=== PATIENT | male | born 1950 | race African-American/Black ===

== ENCOUNTER 2017-06-14 14:36 | Emergency (ER) | payer MEDICARE ==
[2017-06-14 15:29] VITALS: BMI 30.4
--- NOTE | 2017-06-14 16:42 | PDOC ---
History of Present Illness - General Chief Complaint: Injury Stated Complaint: FALL Time Seen by Provider: 06/14/17 16:36 History Source: Patient Exam Limitations: No Limitations - History of Present Illness Initial Comments: CHIEF COMPLAINT: 66 y/o afebrile male with PMH HTN, HLD c/o left shoulder pain s/p fall. HISTORY OF PRESENT ILLNESS: The patient states he walked into his apartment this afternoon carrying a lot of bags when he slipped on the floor and landed on his left side. He states he realized after he fell that his ceiling was leaking and the floor was wet. He now has left shoulder pain. He denies head trauma, LOC, neck pain, n/v/d, dizziness, CP, SOB, left arm numbness/tingling. He did not take any pain medication at home prior to coming to the ER. Vital signs on arrival are within normal limits. REVIEW OF SYSTEMS: GENERAL/CONSTITUTIONAL: No fever/chills. No weakness. No weight change. HEAD, EYES, EARS, NOSE AND THROAT: No change in vision. No ear pain or discharge. No sore throat. MUSCULOSKELETAL: +left shoulder pain. No neck or back pain. SKIN: No rash or easy bruising. NEUROLOGIC: No headache, vertigo, loss of consciousness, or loss of sensation. PHYSICAL EXAM: VITAL_SIGNS: within normal limits GENERAL_APPEARANCE: alert, cooperative, no obvious discomfort. MENTAL_STATUS: speech clear, oriented X 3, responds appropriately to questions. NEURO: motor intact and sensory intact in injured extremity. EXTREMITIES: Pt cannot abduct left arm > 90 degrees and he cannot put his left arm behind his back. Pain with palpation of left AC joint. No tenting or deformities to left clavicle. No obvious deformities to left shoulder. SKIN: warm, dry, good color. Past History - Past Medical History Allergies/Adverse Reactions: Allergies Allergy/AdvReac Type Severity Reaction Status Date / Time No Known Allergies Allergy Verified 11/08/14 02:18 Home Medications: Ambulatory Orders Fenofibric Acid [Trilipix -] 135 mg PO DAILY #30 cap 11/12/14 Irbesartan 300 mg PO DAILY #0 tablet 11/12/14 Tramadol HCl 50 mg PO Q6H #15 tablet MDD 6 06/14/17 Anemia: No Asthma: No Cancer: No Cardiac Disorders: No CVA: No COPD: No CHF: No Dementia: No Diabetes: No GI Disorders: No Disorders: No HTN: Yes Hypercholesterolemia: Yes Liver Disease: No Seizures: No Thyroid Disease: No - Surgical History Abdominal Surgery: No Appendectomy: No Cardiac Surgery: No Cholecystectomy: No Lung Surgery: No Neurologic Surgery: No Orthopedic Surgery: Yes (bilateral knee sx) - Immunization History Immunization Up to Date: Yes - Psycho/Social/Smoking Cessation Hx Anxiety: No Suicidal Ideation: No Smoking History: Never smoked Have you smoked in the past 12 months: No Number of Cigarettes Smoked Daily: 3 Information on smoking cessation initiated: No 'Breaking Loose' booklet given: 11/09/14 Hx Alcohol Use: No Drug/Substance Use Hx: No Substance Use Type: None Hx Substance Use Treatment: No *Physical Exam - Vital Signs Last Vital Signs Temp Pulse Resp BP Pulse Ox 97.6 F 81 18 117/75 97 06/14/17 15:00 06/14/17 15:00 06/14/17 15:00 06/14/17 15:00 06/14/17 15:00 Medical Decision Making - Medical Decision Making A/P: 66 y/o afebrile male with left shoulder pain s/p slip and fall at home. Plan is as follows: 1. Left shoulder/clavicle xray 2. PO motrin Left shoulder/clavicle xray IMPRESSION: No acute fracture or dislocation The patient was given his results. Suspect rotator cuff injury. Suggested RICE instructions and provided referral for Ortho. He states he already sees Dr. Roche. Suggested he call Dr. Roche tomorrow to schedule follow up appointment. Will send rx for tramadol, and suggested he take 600mg of Ibuprofen every 6 hours with food for pain in addition to the tramadol if needed. Instructed him to return to the ER with any worsening or concerning symptoms. The patient verbalizes understanding of all instructions, has no further questions and is awaiting discharge. *DC/Admit/Observation/Transfer Diagnosis at time of Disposition: Shoulder pain, left Qualifiers: Chronicity: acute Qualified Code(s): M25.512 - Pain in left shoulder Rotator cuff (capsule) sprain Qualifiers: Encounter type: initial encounter Laterality: left Qualified Code(s): S43.422A - Sprain of left rotator cuff capsule, initial encounter - Discharge Dispostion Disposition: HOME Condition at time of disposition: Unchanged/Unknown - Prescriptions Prescriptions: Tramadol HCl 50 mg PO Q6H #15 tablet MDD 6 - Referrals Referrals: Onelia Zuniga MD [Primary Care Provider] - Raúl Roche MD [Staff Physician] - 1 week - Patient Instructions Printed Discharge Instructions: How To Perform RICE (Rest, Ice, Compress, Elevate), DI for Shoulder Pain, DI for Rotator Cuff Injury Additional Instructions: Discharge Instructions: -The xrays of your shoulder were negative for broken bones. -Please follow RICE instructions at home -A prescription for Tramadol was sent to your pharmacy for pain -Take 600mg of over the counter Ibuprofen every 6 hours with food for pain if needed as extra pain relief. -If no improvement in your shoulder pain within 1 week, please call Dr. Roche to schedule follow up appointment -Return to the ER with any worsening or concerning symptoms.
[2017-06-14] MEDS ORDERED: IBUPROFEN 600 MG TABLET (FP) PO ONE ×2 (16:52→16:57)
[2017-06-14 19:19] VITALS: BP 134/69; PULSE 69; TEMP 98.1
== END 2017-06-14 18:50 | disposition home or self-care (01) ==
LOC: JER 14:36
DX: S43.422A Sprain of left rotator cuff capsule, initial encounter (principal); W01.0XXA Fall on same level from slipping, tripping and stumbling without subsequent striking against object, initial encounter; Y93.89 Activity, other specified; Y92.009 Unspecified place in unspecified non-institutional (private) residence as the place of occurrence of the external cause; I10 Essential (primary) hypertension; E78.5 Hyperlipidemia, unspecified
CPT/HCPCS: 73000-TC-LT; 73030-TC-LT; 99281-25

== ENCOUNTER 2018-10-22 16:42 | Emergency (ER) | payer MEDICARE, OTHER ==
[2018-10-22 17:18] VITALS: BP 160/85; PULSE 82; TEMP 97.3; BMI 35.7
[2018-10-22] MEDS ORDERED: KETOROLAC TROMETHAMINE 60 MG/2 ML VIAL IM ONE (18:51)
--- NOTE | 2018-10-22 18:51 | PDOC ---
History of Present Illness - General Chief Complaint: Chronic pain Stated Complaint: PAIN Time Seen by Provider: 10/22/18 18:18 History Source: Patient Exam Limitations: No Limitations - History of Present Illness Initial Comments: 10/22/18 19:07 Came with family member with complaints of exacerbated chronic back pain. has long history of multiple years of sciatica related to lumbar disc issues. Had recent MRI that revealed multiple disc issues and is currently under pain management. received a steroid injection a few weeks ago but has not had significant resolve her pain. His pain management doctor and orthopedist is not in the office today and pain is worsened over the past few days. 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 Pain Location: reports: back Method of Injury: Yes: unknown Modifying Factors: improves with: None. worse with: cold therapy, pain medication Associated Symptoms (Fall): denies symptoms Past History - Travel Traveled outside of the country in the last 30 days: No Close contact w/someone who was outside of country & ill: No - Past Medical History Allergies/Adverse Reactions: Allergies Allergy/AdvReac Type Severity Reaction Status Date / Time No Known Allergies Allergy Verified 10/22/18 17:17 Home Medications: Ambulatory Orders Amlodipine Besylate [Norvasc -] 10 mg PO DAILY 10/22/18 Diclofenac Sodium 50 mg PO BID 10/22/18 Gabapentin [Neurontin -] 300 mg PO Q8H 10/22/18 Nortriptyline HCl [Pamelor -] 25 mg PO DAILY 10/22/18 Anemia: No Asthma: No Cancer: No Cardiac Disorders: No CVA: No COPD: No CHF: No Dementia: No Diabetes: No GI Disorders: No Disorders: No HTN: Yes Hypercholesterolemia: Yes Liver Disease: No Seizures: No Thyroid Disease: No Other medical history: low back derrangement - Surgical History Abdominal Surgery: No Appendectomy: No Cardiac Surgery: No Cholecystectomy: No Lung Surgery: No Neurologic Surgery: No Orthopedic Surgery: Yes (bilateral knee sx) - Immunization History Immunization Up to Date: Yes - Suicide/Smoking/Psychosocial Hx Smoking History: Unknown if ever smoked Have you smoked in the past 12 months: No Number of Cigarettes Smoked Daily: 3 'Breaking Loose' booklet given: 11/09/14 Hx Alcohol Use: No Drug/Substance Use Hx: No Substance Use Type: None Hx Substance Use Treatment: No Review of Systems - Review of Systems Able to Perform ROS?: Yes Is the patient limited Albanian proficient: Yes Constitutional: Yes: Symptoms Reported, See HPI. No: Fever, Malaise, Night Sweats HEENTM: Yes: See HPI. No: Symptoms Reported Respiratory: Yes: See HPI. No: Symptoms reported Musculoskeletal: Yes: Symptoms Reported, See HPI, Back Pain, Muscle Pain, Joint Stiffness. No: Joint Pain, Joint Swelling, Muscle Weakness All Other Systems: Reviewed and Negative *Physical Exam - Vital Signs Last Vital Signs Temp Pulse Resp BP Pulse Ox 97.3 F L 82 18 160/85 98 10/22/18 17:17 10/22/18 17:17 10/22/18 17:17 10/22/18 17:17 10/22/18 17:17 - Physical Exam General Appearance: Yes: Nourished, Appropriately Dressed, Apparent Distress HEENT: positive: MIRA, Normal ENT Inspection, TMs Normal, Pharynx Normal Neck: positive: Supple. negative: Tender Musculoskeletal: positive: Decreased Range of Motion, Muscle Spasm (tender tight lumbar paravertebral musculature, but no true spasm palpated has no true bone tenderness, but range of motion is limited secondary to chronic pain primarily at L3-4-5 S1. Unable to perform leg raise test and walks slowly but without foot drop). 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 Encouraged to follow up with his physician tomorrow *DC/Admit/Observation/Transfer Diagnosis at time of Disposition: Back pain Qualifiers: Back pain location: low back pain Chronicity: chronic Back pain laterality: bilateral Sciatica presence: with sciatica Sciatica laterality: sciatica laterality unspecified Qualified Code(s): M54.40 - Lumbago with sciatica, unspecified side; G89.29 - Other chronic pain - Discharge Dispostion Disposition: HOME Condition at time of disposition: Stable Decision to Admit order: No - Referrals Referrals: Onelia Zuniga MD [Primary Care Provider] - - Patient Instructions Printed Discharge Instructions: Managing Chronic Low Back Pain Additional Instructions: Rest, ice to area on and off for 15 minutes 4-6 times a day Avoid heavy lifting or exercise until pain and swelling is resolved or until further directed Keep area highly elevated to reduce swelling if significantly improved may wait one week for followup with orthopedist May use ibuprofen 2-200 mg tablets every 6 hours as needed for pain May take 1/2 or 1 tablet of Percocet every 6 hours, given 2 tablets only Continue all other pain medications as directed Follow-up with pain management/orthopedist as soon as possible to discuss further pain management treatments - Post Discharge Activity Forms/Work/School Notes: Back to Work
[2018-10-22] MEDS ORDERED: KETOROLAC TROMETHAMINE 60 MG/2 ML VIAL ONE (18:52)
== END 2018-10-22 19:12 | disposition home or self-care (01) ==
LOC: JERFT 16:42
PROC: 3E0233Z Introduction of Anti-inflammatory into Muscle, Percutaneous Approach (ICD-10-PCS; principal; 2018-10-22)
DX: M51.16 Intervertebral disc disorders with radiculopathy, lumbar region (principal); M53.86 Other specified dorsopathies, lumbar region; G89.29 Other chronic pain; I10 Essential (primary) hypertension; E78.00 Pure hypercholesterolemia, unspecified
CPT/HCPCS: 96372; 99281-25

== ENCOUNTER 2018-11-18 10:51 | Emergency (ER) | payer OTHER ==
[2018-11-18 11:01] VITALS: BP 148/75; PULSE 85; BMI 35.7
[2018-11-18] MEDS ORDERED: KETOROLAC TROMETHAMINE 60 MG/2 ML VIAL IM ONE (11:52)
--- NOTE | 2018-11-18 11:56 | PDOC ---
History of Present Illness - General Chief Complaint: Chronic pain Stated Complaint: BACK PAIN Time Seen by Provider: 11/18/18 11:47 - History of Present Illness Initial Comments: 11/18/18 11:53 68-year-old male with a past medical history significant for lumbar radiculopathy. He's had a flareup for the last 2 months without any precipitating traumatic event without loss of bowel or bladder function. The only medication he takes at this point his Lyrica 75 mg daily. Presents for evaluation of worsening radicular symptoms. Past History - Past Medical History Allergies/Adverse Reactions: Allergies Allergy/AdvReac Type Severity Reaction Status Date / Time No Known Allergies Allergy Verified 11/18/18 10:59 Home Medications: Ambulatory Orders Amlodipine Besylate [Norvasc -] 10 mg PO DAILY 10/22/18 Diclofenac Sodium 50 mg PO BID 10/22/18 Gabapentin [Neurontin -] 300 mg PO Q8H 10/22/18 Nortriptyline HCl [Pamelor -] 25 mg PO DAILY 10/22/18 Cyclobenzaprine HCl [Flexeril 10 mg] 10 mg PO HS PRN #10 tablet 11/18/18 Methylprednisolone [Medrol Dose Silviano] 4 mg PO ASDIR #21 tablet 11/18/18 Pregabalin [Lyrica -] 75 mg PO BID 11/18/18 Anemia: No Asthma: No Cancer: No Cardiac Disorders: No CVA: No COPD: No CHF: No Dementia: No Diabetes: No GI Disorders: No Disorders: No HTN: Yes Hypercholesterolemia: Yes Liver Disease: No Seizures: No Thyroid Disease: No - Surgical History Abdominal Surgery: No Appendectomy: No Cardiac Surgery: No Cholecystectomy: No Lung Surgery: No Neurologic Surgery: No Orthopedic Surgery: Yes (bilateral knee sx) - Immunization History Immunization Up to Date: Yes - Suicide/Smoking/Psychosocial Hx Smoking History: Never smoked Have you smoked in the past 12 months: No Number of Cigarettes Smoked Daily: 3 'Breaking Loose' booklet given: 11/09/14 Hx Alcohol Use: No Drug/Substance Use Hx: No Substance Use Type: None Hx Substance Use Treatment: No Review of Systems - Review of Systems Constitutional: No: Fever Musculoskeletal: Yes: Back Pain *Physical Exam - Vital Signs Last Vital Signs Temp Pulse Resp BP Pulse Ox 85 18 148/75 97 11/18/18 11:00 11/18/18 11:00 11/18/18 11:00 11/18/18 11:00 - Physical Exam Comments: 11/18/18 11:54 Lumbar spine skin color and temperature are normal. Range of motion is limited. There is moderate left-sided paralumbar musculature spasm and tenderness. No midline tenderness. 5 out of 5 strength in bilateral lower extremities without gross sensorimotor deficits. Negative straight leg raise test on the right positive on the left. Thighs and calves are soft and nontender there are no gross sensorimotor deficits. He is neurovascularly intact. Moderate Sedation - Procedure Monitoring Vital Signs: Procedure Monitoring Vital Signs Temperature Pulse Rate 85 11/18/18 11:00 Respiratory Rate 18 11/18/18 11:00 Blood Pressure 148/75 11/18/18 11:00 O2 Sat by Pulse Oximetry (%) 97 11/18/18 11:00 *DC/Admit/Observation/Transfer Diagnosis at time of Disposition: Lumbar radiculopathy - Discharge Dispostion Disposition: HOME Condition at time of disposition: Stable Decision to Admit order: No - Prescriptions Prescriptions: Cyclobenzaprine HCl [Flexeril 10 mg] 10 mg PO HS PRN #10 tablet PRN Reason: Muscle Spasms Methylprednisolone [Medrol Dose Silviano] 4 mg PO ASDIR #21 tablet - Referrals Referrals: Onelia Zuniga MD [Primary Care Provider] - Raúl Anthony MD [Staff Physician] - - Patient Instructions Printed Discharge Instructions: Lumbar Radiculopathy, DI for Lumbar Radiculopathy Additional Instructions: Return to the emergency room should symptoms worsen or go unresolved. Please start the steroid pack tomorrow and take the medication as directed. Do not take any Advil Motrin Tylenol or Aleve while on the Medrol Dosepak. The muscle relaxers one tablet before bedtime it will make you sleepy. Follow-up with spine surgery one to 2 days for further evaluation and treatment options. - Post Discharge Activity
[2018-11-18] MEDS ORDERED: KETOROLAC TROMETHAMINE 60 MG/2 ML VIAL ONE (11:58)
== END 2018-11-18 12:06 | disposition home or self-care (01) ==
LOC: JERFT 10:51
DX: M54.16 Radiculopathy, lumbar region (principal); I10 Essential (primary) hypertension; E78.00 Pure hypercholesterolemia, unspecified
CPT/HCPCS: 99281-25

== ENCOUNTER 2019-05-15 08:01 | Day surgery (SDC) | payer OTHER ==
[2019-05-12 13:23] VITALS: BMI 37.4
[2019-05-15] MEDS ORDERED: MIDAZOLAM HCL 2 MG/2 ML SINGLE DOSE VIAL ONE (08:50)
[2019-05-15] MEDS ORDERED: ROPIVACAINE HCL 0.5% 30ML VIAL ONE (08:51)
[2019-05-15] MEDS ORDERED: PROPOFOL 20 ML ONE ×2 (09:22→09:35)
[2019-05-15] MEDS ORDERED: DEXAMETHASONE SOD PHOSPHATE 4 MG/1 ML VIAL ONE (09:42)
[2019-05-15] MEDS ORDERED: ONDANSETRON 4 MG/2 ML VIAL ONE (09:42)
[2019-05-15] MEDS ORDERED: ceFAZolin SODIUM 1 GM VIAL ONE (09:42)
[2019-05-15] MEDS ORDERED: BACITRACIN 15 GM TUBE TOPICAL OINTMENT ONE (10:42)
[2019-05-15] MEDS ORDERED: EPINEPHrine 1:1,000 1 MG/1 ML - 30ML VIAL (INJECTION) ONE (11:20)
--- NOTE | 2019-05-15 14:20 | OP ---
Operative Note - Note: Operative Date: 05/15/19 Pre-Operative Diagnosis: left rotator cuff tear Post-Operative Diagnosis: Same as Pre-op Surgeon: Matheus Manuel Manager Nc: Echo Hanna Anesthesia: Fractional Operative Report Dictated: Yes
[2019-05-15] MEDS ORDERED: PROMETHAZINE HCL 25 MG/1 ML VIAL IVPUSH PRN (14:33)
[2019-05-15] MEDS ORDERED: oxyCODONE HCL 5 MG TABLET PO PRN ×2 (14:33)
[2019-05-15] MEDS ORDERED: ONDANSETRON 4 MG/2 ML VIAL IVPUSH PRN (14:33)
--- NOTE | 2019-05-15 14:49 | OP ---
DATE OF OPERATION: 05/15/2019 PREOPERATIVE DIAGNOSIS: Left shoulder chronic rotator cuff tear. POSTOPERATIVE DIAGNOSIS: Left shoulder chronic rotator cuff tear. PROCEDURE: Left shoulder arthroscopy with repair of subscapularis, superior capsular reconstruction. SURGEON: Matheus Manuel MD PRE SALES ARCHITECT: NERI Barrera, whose skillful assistance was necessary for the safe and timely performance of this procedure. Ms. Hanna was able to provide positioning, drive the camera, assist in graft insertion and fixation. ANESTHESIA: Regional plus general. POSTOPERATIVE CONDITION: Stable. COMPLICATIONS: None. IMPLANTS: Arthrex SwiveLock x7, Knotless SutureTak x2. INDICATIONS: This is a pleasant 68-year-old gentleman who has been suffering from shoulder pain. He was found to have a full-thickness chronic retracted rotator cuff tear, which appeared unrepairable. Treatment options were discussed including nonoperative repair versus operative repair with either SCR or RTSA. After discussing these 2 procedures in detail, the patient elected to proceed with RTSA. Surgical risks were discussed in detail including bleeding, infection, neurovascular injury, need for further surgery, postoperative pain and stiffness, failure of the graft to heal. We discussed medical risks such as heart attack, stroke, DVT, PE , and . I addressed use of perioperative antibiotic and DVT prophylaxis. I reviewed that this is not an anatomic repair, meaning the normal function of the rotator cuff was not expected to be restored. Rather, the capsule portion of the rotator cuff is trying to be replaced utilizing the allograft to provide the best function possible given the damaged nature of the rotator cuff. If this surgery should failure, RTSA would be a possibility. I reviewed, repeated the postoperative protocol. We discussed medical risks such as heart attack, stroke, DVT, PE, and . I addressed all the patients questions and concerns as well as his wifes. He elected to proceed. DESCRIPTION OF PROCEDURE: The patient was brought to the operating room after administration of a regional block in the preoperative holding area. The patient was placed into the beach-chair position, careful to pad all the bony prominences. The patient was then prepped and draped in the usual sterile fashion. A preoperative dose of antibiotics was given, and the usual time-out procedure was performed. Portal sites were now marked out on the shoulder. A posterior viewing portal was established. Passing the arthroscope into the shoulder demonstrated moderate arthrosis of the glenohumeral joint. There was diffuse fraying of the labrum. There was a full-thickness retracted rotator cuff tear involving the supraspinatus, infraspinatus, and subscapularis. The biceps was retracted medially. An anterior working portal was established. A biceps tenotomy was performed. The footprint of the subscapularis was now debrided down to bleeding bone. The subscapularis itself was sutured using 3 FiberLink sutures in luggage tag fashion. The inferior most suture was then placed into a SwiveLock anchor which was punched and then inserted more inferiorly on the footprint. This was then repeated more superiorly securing the subscapularis down to its anatomic insertion. Attention was now turned to the greater tuberosity. Here, no rotator cuff was attached. Utilizing electrocautery as well as a shaver, this was debrided down to bleeding bone. Attention was then turned to the superior surface of the glenoid. Here, just at the level of the glenoid was the remnant to the rotator cuff. An incision was made all in the interval between the supraspinatus and infraspinatus to allow exposure of the superior glenoid. The electrocautery was now used to debride the soft tissue off the superior aspect of the glenoid maintaining the labrum. A shaver and a alfred were then used to debride down to bleeding bone in the glenoid. Two Knotless SutureTak sutures were now inserted, one more anteriorly on the glenoid at approximately the 10 a.m. position and one more posteriorly at approximately the 2 p.m. position. The anchors were inserted and excellent purchase was achieved. Attention was now turned towards the greater tuberosity. Here, one SwiveLock was inserted anterior portion and one at the posterior portion at the greater tuberosity chondral junction. At this point, the distance between the sutures was measured. A graft was then trimmed down to the appropriate size. The glenoid sutures were then passed through the medial portion of the graft, and the greater tuberosity sutures were passed through the lateral portion of the graft. The graft was now inserted into the joint, and the Knotless sutures were toggled, securing the graft to the superior aspect of the glenoid. Care was taken to ensure that graft was flat across the surface. The lateral run sutures were then passed into a crossing pattern and secured with 2 lateral SwiveLock anchors. The graft now provided a nice bridge between the glenoid and the tuberosity and was well fixated. Inferiorly, there was a gap between the rotator cuff remnant and the graft. One of the sutures from the anterolateral was used to pass in mattress fashion through both the graft and rotator cuff securing that back into place. After tying these, additional lateral anchor was inserted providing a double-row fixation of this layer into construct. Attention was then turned posteriorly. Utilizing the posterolateral anchor, an additional suture was passed through the soft tissue in the back of the shoulder as well as the graft securing the back corner of the graft down in blast fashion. It should be noted that prior to performing the graft insertion, the shaver was used along with electrocautery to provide a subacromial decompression, and also the undersurface of the distal clavicle was excised out of the significant prominence on the undersurface crushing down into the rotator cuff. It should be noted that this case involved significant increased difficulty from typical. This involved having to do both a rotator cuff reconstruction with the superior capsule as well as to perform a rotator cuff repair utilizing the subscapularis. Given the chronic nature of this tear and massive nature of this tear, it was significantly more difficult and required extra time, extra effort , and extra operative thought and planning with this procedure. After the procedure was complete, the excess fluid was withdrawn from the joint. The portals were sutured using 3-0 nylon. Sterile dressings were placed. The patient was placed in a sling. He was transferred to the recovery room in stable condition. Bernice [id number] MTDD
[2019-05-15 17:06] VITALS: BP 137/78; PULSE 76; TEMP 98.1
== END 2019-05-15 16:30 | disposition home or self-care (01) ==
LOC: FASU 08:01
PROVIDERS: ATTEND Orthopaedic Surgery Sports Medicine
PROC: 0RQK4ZZ Repair Left Shoulder Joint, Percutaneous Endoscopic Approach (ICD-10-PCS; 2019-05-15)
PROC: 0LQ24ZZ Repair Left Shoulder Tendon, Percutaneous Endoscopic Approach (ICD-10-PCS; principal; 2019-05-15 10:04)
DX: M75.122 Complete rotator cuff tear or rupture of left shoulder, not specified as traumatic (principal)
CPT/HCPCS: 94760

== ENCOUNTER 2020-06-12 10:34 | Emergency (ER) | payer OTHER ==
[2020-06-12 10:43] VITALS: BP 157/72; PULSE 80; BMI 30.4
[2020-06-12] MEDS ORDERED: CYCLOBENZAPRINE HCL 10 MG TABLET (FP) PO ONE (11:30)
[2020-06-12] MEDS ORDERED: ACETAMINOPHEN 500 MG TABLET (FP) PO ONE (11:30)
[2020-06-12] MEDS ORDERED: CYCLOBENZAPRINE HCL 10 MG TABLET (FP) ONE (11:31)
[2020-06-12] MEDS ORDERED: ACETAMINOPHEN 500 MG TABLET (FP) ONE (11:31)
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
== END 2020-06-12 11:59 | disposition home or self-care (01) ==
LOC: JERFT 10:34
DX: S16.1XXA Strain of muscle, fascia and tendon at neck level, initial encounter (principal)
CPT/HCPCS: 72050-TC-FY; 99283-25

== ENCOUNTER 2021-10-28 10:59 | Inpatient (IN) | payer OTHER ==
[2021-10-28] MEDS ORDERED: SODIUM CHLORIDE 0.9% 500 ML INFUS.BAG IV ONE ×2 (12:13)
[2021-10-28 12:27] LABS: BASO % 0.3 % (0-2.0); EOS % 1.9 % (0-4.5); HEMATOCRIT 44.1 % (35.4-49); HEMOGLOBIN 14.3 GM/dL (11.7-16.9); LYMPH % 40.6 % (8-40); MCHC 32.5 g/dl (32.0-35.9); MEAN PLT VOLUME 8.6 fl (7.5-11.1); MONO % 11.4 % (3.8-10.2); NEUT % 45.8 % (42.8-82.8); PLATELET COUNT 251 10^3/uL (134-434); RBC 5.12 M/mm3 (4.00-5.60); RDW 14.8 % (11.9-15.9); WHITE BLOOD COUNT 6.6 K/mm3 (4.0-10.0)
[2021-10-28 12:29] LABS: VENOUS BASE EXCESS 1.8 mmol/L (-2-2); VENOUS O2 SATURATION 62.3 % (70-80); VENOUS PCO2 45.3 mmHg (38-52); VENOUS PH 7.397 (7.310-7.410)
[2021-10-28 12:33] LABS: INR 1.12 (0.83-1.09); PROTHROMBIN TIME (PATIENT) 12.9 SEC (9.7-13.0)
[2021-10-28 12:36] LABS: ACTIVATED PTT 27.3 SECONDS (25.2-36.5)
[2021-10-28 12:48] LABS: CHLORIDE 100 mmol/L (98-107); SODIUM 136 mmol/L (136-145)
[2021-10-28 12:50] LABS: CALCIUM 10.7 mg/dL (8.5-10.1)
[2021-10-28 12:51] LABS: ALBUMIN 3.7 g/dl (3.4-5.0); ANION GAP 9 MMOL/L (8-16); CO2 27 mmol/L (21-32); GLUCOSE,RANDOM 134 mg/dL (74-106); MAGNESIUM 2.4 mg/dL (1.8-2.4)
[2021-10-28 12:54] LABS: CREATININE 1.1 mg/dL (0.55-1.3); SGOT/AST 44 U/L (15-37); SGPT/ALT 55 U/L (13-61)
[2021-10-28 12:55] LABS: TOT PROT 8.3 g/dl (6.4-8.2)
[2021-10-28 12:56] LABS: BILIRUBIN,TOTAL 0.7 mg/dL (0.2-1)
[2021-10-28 12:57] LABS: ALK PHOS 94 U/L (45-117); LACTIC ACID 2.4 mmol/L (0.4-2.0)
[2021-10-28 12:59] LABS: LDH 299 U/L (87-246)
[2021-10-28] MEDS ORDERED: DEXAMETHASONE SOD PHOSPHATE 4 MG/1 ML VIAL IVPUSH ONE (17:08)
[2021-10-28] MEDS ORDERED: DEXAMETHASONE SOD PHOSPHATE 10 MG/1 ML VIAL ONE (17:22)
[2021-10-28] MEDS ORDERED: SODIUM CHLORIDE 1,000 ML IV SCH (17:45)
[2021-10-28] MEDS ORDERED: ACETAMINOPHEN 325 MG TABLET (FP) PO PRN (17:45)
[2021-10-28] MEDS ORDERED: ALBUTEROL SO4 HFA INHALER IH PRN (18:39)
[2021-10-28 23:56] LABS: BILIRUBIN,DIRECT 0.3 mg/dL (0.0-0.2)
[2021-10-29 00:15] LABS: LACTIC ACID 2.8 mmol/L (0.4-2.0)
[2021-10-29 08:27] LABS: BASO % 0.3 % (0-2.0); EOS % 0.1 % (0-4.5); HEMATOCRIT 39.4 % (35.4-49); HEMOGLOBIN 12.7 GM/dL (11.7-16.9); LYMPH % 30.1 % (8-40); MCHC 32.1 g/dl (32.0-35.9); MEAN CELL VOLUME 87.2 fl (80-96); MEAN PLT VOLUME 8.7 fl (7.5-11.1); MONO % 8.1 % (3.8-10.2); NEUT % 61.4 % (42.8-82.8); PLATELET COUNT 247 10^3/uL (134-434); RBC 4.52 M/mm3 (4.00-5.60); RDW 14.6 % (11.9-15.9); WHITE BLOOD COUNT 3.7 K/mm3 (4.0-10.0)
[2021-10-29 08:52] LABS: CALCIUM 10.1 mg/dL (8.5-10.1)
[2021-10-29 08:53] LABS: BLOOD UREA NITROGEN 11.9 mg/dL (7-18)
[2021-10-29 08:56] LABS: CREATININE 0.8 mg/dL (0.55-1.3)
[2021-10-29] MEDS ORDERED: DEXAMETHASONE SOD PHOSPHATE 10 MG/1 ML VIAL ONE (11:02)
[2021-10-29] MEDS: DEXAMETHASONE SOD PHOSPHATE 10 MG/1 ML VIAL IVPUSH SCH (11:15)
[2021-10-29] MEDS ORDERED: AZITHROMYCIN 250 MG TABLET PO ONE (12:00)
[2021-10-29] MEDS ORDERED: AZITHROMYCIN 250 MG TABLET ONE (12:30)
[2021-10-29] MEDS ORDERED: ATORVASTATIN CA 10 MG TABLET (FP) ONE (22:20)
[2021-10-29] MEDS: ATORVASTATIN CA 10 MG TABLET (FP) PO SCH (22:25)
[2021-10-29] MEDS ORDERED: REMDESIVIR 200 MG in SODIUM CHLORIDE 250 ML IVPB ONE (23:03)
[2021-10-30 09:29] LABS: BASO % 0.2 % (0-2.0); EOS % 0.2 % (0-4.5); HEMOGLOBIN 12.4 GM/dL (11.7-16.9); LYMPH % 17.9 % (8-40); MCH 28.9 pg (25.7-33.7); MCHC 33.5 g/dl (32.0-35.9); MEAN CELL VOLUME 86.2 fl (80-96); MONO % 10.1 % (3.8-10.2); NEUT % 71.6 % (42.8-82.8); PLATELET COUNT 273 10^3/uL (134-434); RBC 4.29 M/mm3 (4.00-5.60); RDW 14.8 % (11.9-15.9)
[2021-10-30 09:51] LABS: CALCIUM 10.2 mg/dL (8.5-10.1)
[2021-10-30 09:52] LABS: ALBUMIN 3.2 g/dl (3.4-5.0); BLOOD UREA NITROGEN 13.1 mg/dL (7-18)
[2021-10-30 09:55] LABS: CREATININE 0.9 mg/dL (0.55-1.3)
[2021-10-30 09:56] LABS: BILIRUBIN,TOTAL 0.4 mg/dL (0.2-1); TOT PROT 7.2 g/dl (6.4-8.2)
[2021-10-30] MEDS ORDERED: DEXAMETHASONE SOD PHOSPHATE 10 MG/1 ML VIAL ONE (09:56)
[2021-10-30] MEDS: DEXAMETHASONE SOD PHOSPHATE 10 MG/1 ML VIAL IVPUSH SCH (09:58)
[2021-10-30] MEDS ORDERED: AZITHROMYCIN 250 MG TABLET PO SCH (10:00)
[2021-10-30] MEDS ORDERED: ATORVASTATIN CA 10 MG TABLET (FP) ONE (23:58)
[2021-10-31] MEDS: ATORVASTATIN CA 10 MG TABLET (FP) PO SCH ×2 (00:02→21:39)
[2021-10-31 01:23] VITALS: BMI 32.9
[2021-10-31 07:57] LABS: BASO % 0.5 % (0-2.0); EOS % 0.7 % (0-4.5); HEMATOCRIT 37.5 % (35.4-49); HEMOGLOBIN 12.2 GM/dL (11.7-16.9); LYMPH % 19.2 % (8-40); MCHC 32.4 g/dl (32.0-35.9); MEAN CELL VOLUME 86.5 fl (80-96); MEAN PLT VOLUME 8.5 fl (7.5-11.1); MONO % 11.1 % (3.8-10.2); NEUT % 68.5 % (42.8-82.8); PLATELET COUNT 313 10^3/uL (134-434); RBC 4.34 M/mm3 (4.00-5.60); RDW 14.8 % (11.9-15.9); WHITE BLOOD COUNT 8.2 K/mm3 (4.0-10.0)
[2021-10-31 09:14] LABS: ALBUMIN 3.1 g/dl (3.4-5.0); BLOOD UREA NITROGEN 18.6 mg/dL (7-18); CALCIUM 9.8 mg/dL (8.5-10.1); CREATININE 0.9 mg/dL (0.55-1.3)
[2021-10-31] MEDS: DEXAMETHASONE SOD PHOSPHATE 10 MG/1 ML VIAL IVPUSH SCH (09:46)
[2021-10-31] MEDS: guaiFENesin 200 MG/10 ML 10 ML UNIT-DOSE CUPS PO PRN ×2 (09:47→21:39)
[2021-10-31] MEDS: ALBUTEROL SO4 HFA INHALER IH SCH ×2 (16:38→21:39)
[2021-10-31] MEDS: BUDESONIDE/FORMETEROL FUMARATE 160/4.5 mcg INHALER IH SCH (21:47)
[2021-11-01 09:01] LABS: HEMATOCRIT 37.3 % (35.4-49); MCH 27.9 pg (25.7-33.7); MCHC 32.2 g/dl (32.0-35.9); MEAN CELL VOLUME 86.6 fl (80-96); MEAN PLT VOLUME 8.7 fl (7.5-11.1); PLATELET COUNT 337 10^3/uL (134-434); RBC 4.31 M/mm3 (4.00-5.60); RDW 15.1 % (11.9-15.9); WHITE BLOOD COUNT 9.7 K/mm3 (4.0-10.0)
[2021-11-01 09:39] LABS: ALBUMIN 2.8 g/dl (3.4-5.0); CALCIUM 9.6 mg/dL (8.5-10.1)
[2021-11-01 09:40] LABS: ANISOCYTOSIS 0; BLOOD UREA NITROGEN 16.9 mg/dL (7-18); HELMET CELLS 0; HOWELL-JOLLY BODIES 0; MACROCYTOSIS 0; OVALOCYTE 0; PLATELET ESTIMATE NORMAL; ROULEAU 0; SICKELED CELLS 0; TARGET CELLS 0; TEAR DROP CELLS 0; TOXIC GRANULATION 0
[2021-11-01 09:42] LABS: CREATININE 0.8 mg/dL (0.55-1.3)
[2021-11-01 09:44] LABS: BILIRUBIN,TOTAL 0.5 mg/dL (0.2-1); TOT PROT 6.5 g/dl (6.4-8.2)
[2021-11-01] MEDS: DEXAMETHASONE SOD PHOSPHATE 10 MG/1 ML VIAL IVPUSH SCH (10:34)
[2021-11-01] MEDS: ALBUTEROL SO4 HFA INHALER IH SCH ×4 (10:34→21:10)
[2021-11-01] MEDS: BUDESONIDE/FORMETEROL FUMARATE 160/4.5 mcg INHALER IH SCH ×2 (10:34→21:13)
[2021-11-01] MEDS: guaiFENesin 200 MG/10 ML 10 ML UNIT-DOSE CUPS PO PRN (21:13)
[2021-11-01] MEDS: ATORVASTATIN CA 10 MG TABLET (FP) PO SCH (21:13)
[2021-11-02] MEDS: DEXAMETHASONE SOD PHOSPHATE 10 MG/1 ML VIAL IVPUSH SCH (09:29)
[2021-11-02] MEDS: BUDESONIDE/FORMETEROL FUMARATE 160/4.5 mcg INHALER IH SCH (09:30)
[2021-11-02] MEDS: ALBUTEROL SO4 HFA INHALER IH SCH ×2 (09:31→12:28)
[2021-11-02 15:05] VITALS: BP 141/71; PULSE 80; TEMP 97.5
== END 2021-11-02 15:34 | disposition home or self-care (01) | DRG 177 ==
LOC: JER 10:59 → JERBED 12:48 → J4S 10-31 00:47
PROVIDERS: ADMIT Internal Medicine; ATTEND Internal Medicine
DX: U07.1 COVID-19 (principal); J96.01 Acute respiratory failure with hypoxia; J12.82 Pneumonia due to coronavirus disease 2019; E87.2 Acidosis; I10 Essential (primary) hypertension; E78.5 Hyperlipidemia, unspecified; R07.81 Pleurodynia
CPT/HCPCS: 36415; 71045-TC-FY; 71250-TC; 80048; 80053; 82248; 82550; 82728; 82803; 83605; 83615; 83735; 84484; 85025; 85379; 85610; 85730; 86140; 87040; 87804; 87807; 87899; 93005; 93010; 94010; 94761; 99285-25; C9399; C9803; J1100; U0003; U0005

== ENCOUNTER 2024-01-28 12:15 | Emergency (ER) | payer OTHER ==
[2024-01-28 12:24] VITALS: BP 140/71; PULSE 92; RESP 18; TEMP 98.4; BMI 30.4
[2024-01-28] MEDS ORDERED: ACETAMINOPHEN INJECTION 100 ML IVPB ONE (14:43)
[2024-01-28] MEDS ORDERED: FAMOTIDINE 20 MG TABLET ONE (14:43)
[2024-01-28] MEDS ORDERED: SUCRALFATE 1 GM TABLET (FP) ONE (14:43)
[2024-01-28] MEDS ORDERED: MAG HYDROX/AL HYDROX/SIMETH 30 ML UNIT-DOSE CUP ONE (14:44)
[2024-01-28] MEDS ORDERED: ONDANSETRON 4 MG/2 ML VIAL ONE (14:44)
[2024-01-28] MEDS: ONDANSETRON 4 MG/2 ML VIAL IVPUSH ONE (14:58)
[2024-01-28] MEDS: MAG HYDROX/AL HYDROX/SIMETH 30 ML UNIT-DOSE CUP PO ONE (15:02)
[2024-01-28] MEDS: FAMOTIDINE 20 MG TABLET PO ONE (15:02)
[2024-01-28] MEDS: ACETAMINOPHEN 1000 MG/100 ML BAG IVPB ONE (15:02)
[2024-01-28 15:05] LABS: BASO % 0.6 % (0-2.0); EOS % 0.1 % (0-4.5); HEMATOCRIT 43.1 % (35.4-49); LYMPH % 14.7 % (8-40); MCH 28.8 pg (25.7-33.7); MCHC 32.6 g/dl (32.0-35.9); MEAN CELL VOLUME 88.5 fl (80-96); MEAN PLT VOLUME 8.1 fl (7.5-11.1); MONO % 8.7 % (3.8-10.2); NEUT % 75.9 % (42.8-82.8); PLATELET COUNT 171 10^3/uL (134-434); RBC 4.87 M/mm3 (4.00-5.60); RDW 14.5 % (11.9-15.9); WHITE BLOOD COUNT 13.8 K/mm3 (4.0-10.0)
[2024-01-28] MEDS ORDERED: SUCRALFATE 1 GM TABLET (FP) PO SCH ×2 (15:05→22:00)
[2024-01-28 15:33] LABS: POTASSIUM 3.7 mmol/L (3.5-5.1)
[2024-01-28 15:35] LABS: ALBUMIN 3.8 g/dl (3.4-5.0); BLOOD UREA NITROGEN 9.5 mg/dL (7-18); CALCIUM 10.3 mg/dL (8.5-10.1)
[2024-01-28 15:37] LABS: CREATININE 1.1 mg/dL (0.55-1.3)
[2024-01-28 15:40] LABS: BILIRUBIN,TOTAL 1.2 mg/dL (0.2-1); TOT PROT 7.9 g/dl (6.4-8.2)
== END 2024-01-28 19:31 | disposition home or self-care (01) ==
LOC: JER 12:15
PROC: 3E030NZ Introduction of Analgesics, Hypnotics, Sedatives into Peripheral Vein, Open Approach (ICD-10-PCS; principal; 2024-01-28)
PROC: 3E030GC Introduction of Other Therapeutic Substance into Peripheral Vein, Open Approach (ICD-10-PCS; 2024-01-28)
DX: K85.90 Acute pancreatitis without necrosis or infection, unspecified (principal); K76.0 Fatty (change of) liver, not elsewhere classified; R10.84 Generalized abdominal pain; R11.0 Nausea; R63.0 Anorexia
CPT/HCPCS: 36415; 71045-TC-FY; 74177-TC; 76705-TC; 80053; 83036; 83690; 84484; 85025; 99285-25; J0131; Q9967